=== PATIENT | male | born 1955 | race Caucasian/White ===

== ENCOUNTER 2021-07-27 12:12 | Inpatient (IN) | payer MEDICARE, OTHER ==
[2021-07-27] MEDS ORDERED: Ondansetron 4 MG/2 ML SDV IVPUSH ONE (12:20)
[2021-07-27] MEDS ORDERED: Sodium Chloride 0.9% 1,000 ML IV SCH (12:30)
--- NOTE | 2021-07-27 12:38 | EDM.PDOC ---
ED HPI GENERAL MEDICAL PROBLEM - General Stated Complaint: sob, covid positive Time Seen by Provider: 07/27/21 12:25 Source of Information: Reports: Patient, Family History Limitations: Reports: No Limitations - History of Present Illness INITIAL COMMENTS - FREE TEXT/NARRATIVE: Patient presents to the ER from the clinic for hypoxia from COVId 19. He is vaccinated, he started feeling unwell with body aches, chills, fever, cough a week ago. He tested positive for covid 19 and did receive the monoclonal antibodies yesterday. Today he was feeling worse, went to the clinic and was told he was hypoxic so was sent to the ED. Sats are 88% on room air. Not on breathing treatments or oxygen. Has had fevers, taking over the counter medications. Has diarrhea for the last several days, on iron so stools are already black, no change. Is drinking fluids, good urine output. 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 Denies: Rhinitis, Sinus Problem, Throat Pain, Throat Swelling Respiratory: Reports: Shortness of Breath, Cough Cardiovascular: Reports: Dyspnea on Exertion. Denies: Chest Pain Endocrine: Reports: No Symptoms GI/Abdominal: Reports: Black Stool (on iron, unchanged), Diarrhea, Decreased Appetite, Nausea. Denies: Vomiting Musculoskeletal: Reports: No Symptoms Skin: Reports: No Symptoms Neurological: Reports: No Symptoms Psychiatric: Reports: No Symptoms ED EXAM, GENERAL - Physical Exam Exam: See Below Exam Limited By: No Limitations General Appearance: Alert, WD/WN, No Apparent Distress Eye Exam: Bilateral Eye: EOMI, Normal Inspection, PERRL Ears: Normal External Exam, Normal Canal Nose: Normal Inspection Throat/Mouth: Normal Inspection, Normal Lips, Normal Teeth, Normal Voice Head: Atraumatic Neck: Normal Inspection Respiratory/Chest: Decreased Breath Sounds (bases). No: Respiratory Distress, Crackles Cardiovascular: Normal Peripheral Pulses, Regular Rate, Rhythm GI/Abdominal: Normal Bowel Sounds, Soft, Non-Tender, No Organomegaly Back Exam: Normal Inspection Extremities: Normal Inspection, Normal Range of Motion, No Pedal Edema Neurological: Alert, Oriented, CN II-XII Intact Psychiatric: Normal Affect #1 Interpretation EKG Date: 07/27/21 Time: 12:21 Rhythm: NSR Rate (Beats/Min): 58 P-Wave: Present QRS: Normal CA/PQ Interval: prolonged at 210 Course - Vital Signs Last Recorded V/S: Last Vital Signs Temp 36.6 C 07/27/21 15:24 Pulse 58 L 07/27/21 15:24 Resp 19 07/27/21 15:24 BP 97/49 L 07/27/21 15:24 Pulse Ox 93 L 07/27/21 15:24 - Orders/Labs/Meds Orders: Active Orders 24 hr Category Date Time Status Cardiac Monitoring [RC] 06,10,14,18,22,02 Care 07/27/21 12:16 Active EKG Documentation Completion [RC] STAT Care 07/27/21 12:16 Active Oxygen Therapy Adult [Oxygen Therapy, ED] [RC] Care 07/27/21 12:17 Active ASDIRECTED CULTURE BLOOD [BC] Stat Lab 07/27/21 12:25 Received CULTURE BLOOD [BC] Stat Lab 07/27/21 12:34 Results Sodium Chloride 0.9% [Normal Saline] 1,000 ml Med 07/27/21 12:30 Active IV ASDIRECTED Blood Culture x2 Reflex Set [OM.PC] Stat Oth 07/27/21 12:16 Ordered Medication Orders Sodium Chloride (Normal Saline) 1,000 mls @ 999 mls/hr IV ASDIRECTED OMID Last Admin: 07/27/21 12:42 Dose: 999 mls/hr Documented by: HAI Labs: Laboratory Tests 07/27/21 07/27/21 07/27/21 Range/Units 12:25 12:25 12:25 WBC 4.0 (4.0-10.0) x10^3/uL RBC 4.26 L (4.5-6.0) x10^6/uL Hgb 11.9 L (14.0-18.0) g/dL Hct 37.0 L (40.0-52.0) % MCV 86.9 (78.0-93.0) fL MCH 27.9 (26.0-32.0) pg MCHC 32.2 (32.0-36.0) g/dL RDW Coeff of Jarrod 15.5 H (10.0-15.0) % Plt Count 155 (130-400) x10^3/uL Immature Gran % (Auto) 0.50 H (0.00-0.43) % Neut % (Auto) 71.0 (50.0-80.0) % Lymph % (Auto) 17.1 L (25.0-50.0) % Pinal % (Auto) 10.8 (2.0-11.0) % Eos % (Auto) 0.3 (0.0-4.0) % Baso % (Auto) 0.3 (0.2-1.2) % Neut # (Auto) 2.8 (1.8-7.7) x10^3/uL Lymph # (Auto) 0.7 L (1.0-4.8) x10^3/uL Pinal # (Auto) 0.4 (0.0-0.8) x10^3/uL Eos # (Auto) 0.0 (0.0-0.5) x10^3/uL Baso # (Auto) 0.0 (0.0-0.2) x10^3/uL Immature Gran # (Auto) 0.02 (0.00-0.07) x10^3/uL D-Dimer, Quantitative 1.32 H (<=0.58) mg/LFEU POC ABG pH (7.35-7.45) pH POC ABG pCO2 (35-48) mmHg POC ABG pO2 (83-108) mmHg POC ABG HCO3 (21-28) mmol/L POC ABG Total CO2 (22-29) mmol/L POC ABG O2 Sat (94-98) % POC ABG Base Excess ((-2)-3) mmol/L POC FiO2 Sodium 135 L (136-145) mmol/L Potassium 4.1 (3.5-5.1) mmol/L Chloride 101 (98-107) mmol/L Carbon Dioxide 25 (21-32) mmol/L Anion Gap 13.1 (5-15) mmol/L BUN 11 (7-18) mg/dL Creatinine 0.9 (0.70-1.30) mg/dL Est Cr Clr Drug Dosing TNP Estimated GFR (MDRD) > 60 Glucose 111 H (70-99) mg/dL Lactic Acid (0.4-2.0) mmol/L Calcium 7.7 L (8.5-10.1) mg/dL Corrected Calcium 8.8 (8.5-10.1) mg/dL Total Bilirubin 0.4 (0.2-1.0) mg/dL AST 83 H (15-37) U/L ALT 53 (16-63) U/L Alkaline Phosphatase 88 (46-116) U/L Troponin I High Sens 10 (<=76) ng/L C-Reactive Protein 14.3 H (<=0.9) mg/dL NT-Pro-B Natriuret Pep 104 (<=125) pg/mL Total Protein 6.3 L (6.4-8.2) g/dL Albumin 2.6 L (3.4-5.0) g/dL Globulin 3.7 Albumin/Globulin Ratio 0.70 07/27/21 07/27/21 Range/Units 12:25 12:56 WBC (4.0-10.0) x10^3/uL RBC (4.5-6.0) x10^6/uL Hgb (14.0-18.0) g/dL Hct (40.0-52.0) % MCV (78.0-93.0) fL MCH (26.0-32.0) pg MCHC (32.0-36.0) g/dL RDW Coeff of Jarrod (10.0-15.0) % Plt Count (130-400) x10^3/uL Immature Gran % (Auto) (0.00-0.43) % Neut % (Auto) (50.0-80.0) % Lymph % (Auto) (25.0-50.0) % Pinal % (Auto) (2.0-11.0) % Eos % (Auto) (0.0-4.0) % Baso % (Auto) (0.2-1.2) % Neut # (Auto) (1.8-7.7) x10^3/uL Lymph # (Auto) (1.0-4.8) x10^3/uL Pinal # (Auto) (0.0-0.8) x10^3/uL Eos # (Auto) (0.0-0.5) x10^3/uL Baso # (Auto) (0.0-0.2) x10^3/uL Immature Gran # (Auto) (0.00-0.07) x10^3/uL D-Dimer, Quantitative (<=0.58) mg/LFEU POC ABG pH 7.43 (7.35-7.45) pH POC ABG pCO2 37 (35-48) mmHg POC ABG pO2 87 (83-108) mmHg POC ABG HCO3 24.5 (21-28) mmol/L POC ABG Total CO2 24.9 (22-29) mmol/L POC ABG O2 Sat 96.9 (94-98) % POC ABG Base Excess 0 ((-2)-3) mmol/L POC FiO2 28 Sodium (136-145) mmol/L Potassium (3.5-5.1) mmol/L Chloride (98-107) mmol/L Carbon Dioxide (21-32) mmol/L Anion Gap (5-15) mmol/L BUN (7-18) mg/dL Creatinine (0.70-1.30) mg/dL Est Cr Clr Drug Dosing Estimated GFR (MDRD) Glucose (70-99) mg/dL Lactic Acid 1.6 (0.4-2.0) mmol/L Calcium (8.5-10.1) mg/dL Corrected Calcium (8.5-10.1) mg/dL Total Bilirubin (0.2-1.0) mg/dL AST (15-37) U/L ALT (16-63) U/L Alkaline Phosphatase (46-116) U/L Troponin I High Sens (<=76) ng/L C-Reactive Protein (<=0.9) mg/dL NT-Pro-B Natriuret Pep (<=125) pg/mL Total Protein (6.4-8.2) g/dL Albumin (3.4-5.0) g/dL Globulin Albumin/Globulin Ratio Meds: Medications Generic Name Dose Route Start Last Admin Trade Name Dilma PRN Reason Stop Dose Admin Sodium Chloride 1,000 mls @ 999 mls/hr 07/27/21 12:30 07/27/21 12:42 Normal Saline IV 999 mls/hr ASDIRECTED OMID Administration Discontinued Medications Generic Name Dose Route Start Last Admin Trade Name Denilsonq PRN Reason Stop Dose Admin Dexamethasone 2 mg/ 6 mg 07/27/21 13:16 07/27/21 13:28 Dexamethasone 4 mg PO 07/27/21 13:17 6 mg ONETIME ONE Administration Remdesivir 200 mg/ Sodium 250 mls @ 250 mls/hr 07/27/21 12:56 07/27/21 13:29 Chloride IV 07/27/21 13:55 250 mls/hr ONETIME ONE Administration Iopamidol 100 ml 07/27/21 14:36 07/27/21 14:05 Iopamidol 755 Mg/Ml 100 Ml Bottle IVPUSH 07/27/21 14:37 100 ml ONETIME ONE Administration Ondansetron HCl 4 mg 07/27/21 12:20 07/27/21 12:42 Ondansetron 4 Mg/2 Ml Sdv IVPUSH 07/27/21 12:21 4 mg ONETIME ONE Administration - Radiology Interpretation Free Text/Narrative:: CT chest pe protocol negative for pulmonary embolus sequalae of covid 19 enhancing mass from the right kidney extending beyond the field of view could represent neoplastm. CT with IV contrast in at least 24 hours. report by radiology - Re-Assessments/Exams Free Text/Narrative Re-Assessment/Exam: 07/27/21 12:55 sats are 88% on room air, not in distress. Needs oxygen and admission. will look for other causes or problems , EKG, Iv fluids, zofran due to diarrhea. Departure - Departure Time of Disposition: 13:31 (use ER note as admission H & P) Disposition: Admitted As Inpatient 66 Condition: Good Clinical Impression: Respiratory failure, COVID-19, Renal mass, right - Discharge Information - My Orders Last 24 Hours: My Active Orders 07/27/21 12:16 Cardiac Monitoring [RC] 06,10,14,18,22,02 EKG Documentation Completion [RC] STAT Blood Culture x2 Reflex Set [OM.PC] Stat 07/27/21 12:17 Oxygen Therapy Adult [Oxygen Therapy, ED] [RC] ASDIRECTED 07/27/21 12:25 CULTURE BLOOD [BC] Stat 07/27/21 12:30 Sodium Chloride 0.9% [Normal Saline] 1,000 ml IV ASDIRECTED 07/27/21 12:34 CULTURE BLOOD [BC] Stat - Assessment/Plan Last 24 Hours: My Active Orders 07/27/21 12:16 Cardiac Monitoring [RC] 06,10,14,18,22,02 EKG Documentation Completion [RC] STAT Blood Culture x2 Reflex Set [OM.PC] Stat 07/27/21 12:17 Oxygen Therapy Adult [Oxygen Therapy, ED] [RC] ASDIRECTED 07/27/21 12:25 CULTURE BLOOD [BC] Stat 07/27/21 12:30 Sodium Chloride 0.9% [Normal Saline] 1,000 ml IV ASDIRECTED 07/27/21 12:34 CULTURE BLOOD [BC] Stat
[2021-07-27] MEDS ORDERED: REMDESIVIR 200 MG in Sodium Chloride 0.9% 250 ML IV ONE (12:56)
[2021-07-27] MEDS ORDERED: Dexamethasone 1 MG/ML Oral Drops 4 ML UD Cup PO ONE (12:56)
[2021-07-27 13:03] LABS: PCO2 ARTERIAL,POC 37 mmHg (35-48)
[2021-07-27] MEDS ORDERED: dexAMETHasone 2 MG, dexAMETHasone 4 MG PO ONE ×2 (13:16)
[2021-07-27 13:26] LABS: CHLORIDE,CL 101 mmol/L (98-107); SODIUM,NA 135 mmol/L (136-145)
[2021-07-27 13:27] LABS: ANION GAP 13.1 mmol/L (5-15)
[2021-07-27] MEDS ORDERED: Iopamidol 755 Mg/ML 100 ML Bottle IVPUSH ONE (14:36)
--- NOTE | 2021-07-27 15:25 | CT ---
[id number] CT/CTA Chest EXAM: CTA Chest CLINICAL DATA: HYPOXIA, COVID +, ELEVATED D-DIMER COMPARISON STUDY: None. FINDINGS: Lungs: Patchy areas of geographic appearing and not masslike parenchymal opacification in both lungs. Some of these areas demonstrate associated interlobular septal thickening. Appearance is consistent with sequela of COVID 19. 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 Mediastinum: Reactive appearing subcentimeter mediastinal and hilar lymphadenopathy. Heart and great vessels: Heart is normal in size. No pericardial effusion. Thoracic aorta is normal in caliber. Pulmonary arteries are normal in caliber. Negative for pulmonary most. Bones: No acute fracture or compression deformity. Spondylosis. Upper abdomen: Partially visualized enhancing mass arising from the right kidney. This extends beyond the field of view of this examination. Hepatomegaly and diffuse steatosis. Linear hyperdensity in the region of the gastric body. Finding is nonspecific. Correlate with surgical history. There appears to be vascular coils in the right hepatic lobe. IMPRESSION: Negative for pulmonary embolus. Sequela of COVID 19. Enhancing mass arising from the right kidney extending beyond the field of view of this examination. Finding could represent neoplasm. CT examination of the abdomen/pelvis with intravenous contrast is recommended. Repeat examination should be performed after at least 24 hours to allow for excretion of contrast from today's examination. Other findings are described above. Eloy Sandoval MD 07/27/21 [id number] Thank you for allowing us to participate in the care of your patient.
[2021-07-27] MEDS ORDERED: traMADol 50 MG Tab PO PRN (17:07)
--- NOTE | 2021-07-27 17:14 | PCM.HP.2 ---
H&P History of Present Illness - General Date of Service: 07/27/21 Admit Problem/Dx: Admission Diagnosis/Problem Admission Diagnosis/Problem Respiratory failure - History of Present Illness Initial Comments - Free Text/Narative: Francisco J is a 65-year-old male with a past medical history of angiodysplasia with gastrointestinal hemorrhage, morbid obesity, secondary hypothyroidism, chronic gout, hypokalemia, sleep apnea on CPAP therapy, chronic iron deficiency anemia who is being admitted today for acute hypoxic respiratory failure secondary to Covid pneumonia. Patient states that symptoms started about 5 days ago with some fatigue and body aches. On 07/25/2021 he did start to feel a bit worse and got some chills and actually went to [facility] to get tested for Covid. His Covid test came back positive. Due to his high risk status it was recommended for him to receive band therapy. He actually did receive this on 07/26/2021 and felt pretty good after returning home. Today while doing home oxygen monitoring he did note that his oxygen saturations dipped to 85%. He was advised to go to the ER. Upon arrival to the ER his oxygen was noted to be about 88%. This did improve to the low to mid 90s on 2 L. Labs with a normal white cell count, mildly depressed hemoglobin at 11.9, positive D-dimer at 1.32. ABGs were normal. AST with mild elevation at 83, normal ALT, normal bilirubin, normal alk phos. Troponin was normal. CRP 14.3. Calcium slightly low at 7.7. He was given a dose of remdesivir as well as steroids in the ER. CT scan of the chest did show typical Covid pneumonia findings. No pulmonary embolism was noted. Incidentally, a renal mass was noted on the right kidney. Radiologist did note that this to be followed up in about 24 hours time with IV contrast exam of the abdomen and pelvis. Aside from being in the hospital treat his Covid pneumonia the patient is interested in getting more work-up done in regards to his chronic fatigue. States that this is a problem that he has had for years. Discussed with him that the work-up for this may be difficult in the hospital but we will see what can be done. - Related Data Allergies/Adverse Reactions: Allergies Allergy/AdvReac Type Severity Reaction Status Date / Time No Known Allergies Allergy Verified 07/26/21 11:22 Home Medications: Home Meds Acetaminophen [Tylenol Extra Strength] 1,000 mg PO Q4H PRN 07/27/21 [History] Allopurinol [Zyloprim] 300 mg PO DAILY 07/27/21 [History] Levothyroxine Sodium [Levothyroxine] 100 mcg PO DAILY 07/27/21 [History] Multivitamin with Minerals [Multiple Vitamin] 1 tab PO DAILY 07/27/21 [History] Potassium Chloride [Klor-Con M20] 20 meq PO BIDMEALS 07/27/21 [History] Sildenafil Citrate [Viagra] 100 mg PO DAILY PRN 07/27/21 [History] traMADol [Ultram] 50 mg PO BID PRN 07/27/21 [History] Past Medical History Cardiovascular History: Reports: Hypertension Gastrointestinal History: Reports: Other (See Below) (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) Endocrine/Metabolic History: Reports: Hypothyroidism - Infectious Disease History Infectious Disease History: Reports: Novel Coronavirus Social & Family History - Recreational Drug Use Recreational Drug Use: No Drug Use in Last 12 Months: No H&P Review of Systems - Review of Systems: Review Of Systems: See Below General: Reports: Weakness, Fatigue HEENT: Reports: No Symptoms Pulmonary: Reports: Shortness of Breath Cardiovascular: Reports: No Symptoms Gastrointestinal: Reports: No Symptoms Genitourinary: Reports: No Symptoms Musculoskeletal: Reports: No Symptoms Skin: Reports: No Symptoms Psychiatric: Reports: No Symptoms Neurological: Reports: No Symptoms Hematologic/Lymphatic: Reports: No Symptoms Exam - Exam Exam: See Below - Vital Signs Vital Signs: Last Vital Signs Temp 97.9 F 07/27/21 15:24 Pulse 58 L 07/27/21 15:24 Resp 19 07/27/21 15:24 BP 97/49 L 07/27/21 15:24 Pulse Ox 93 L 07/27/21 15:24 Weight: 300 lb - Exam Quality Assessment: Supplemental Oxygen (3L with sats in the mid-90s) General: Alert, Oriented HEENT: Mucosa Moist & [place] Neck: Supple Lungs: Normal Respiratory Effort, Crackles (throughout the bilateral middle/lower lobes) Cardiovascular: Regular Rate, Regular Rhythm GI/Abdominal Exam: Normal Bowel Sounds, Soft, Non-Tender Back Exam: Normal Inspection Extremities: Normal Inspection, Non-Tender, No Pedal Edema Skin: Warm, Dry, Intact Neuro Extensive - Mental Status: Alert, Oriented x3, Normal Mood/Affect Psychiatric: Alert, Normal Affect, Normal Mood - Patient Data Lab Results Last 24 hrs: Laboratory Results - last 24 hr 07/27/21 07/27/21 07/27/21 Range/Units 12:25 12:25 12:25 WBC 4.0 (4.0-10.0) x10^3/uL RBC 4.26 L (4.5-6.0) x10^6/uL Hgb 11.9 L (14.0-18.0) g/dL Hct 37.0 L (40.0-52.0) % MCV 86.9 (78.0-93.0) fL MCH 27.9 (26.0-32.0) pg MCHC 32.2 (32.0-36.0) g/dL RDW Coeff of Jarrod 15.5 H (10.0-15.0) % Plt Count 155 (130-400) x10^3/uL Immature Gran % (Auto) 0.50 H (0.00-0.43) % Neut % (Auto) 71.0 (50.0-80.0) % Lymph % (Auto) 17.1 L (25.0-50.0) % [place] % (Auto) 10.8 (2.0-11.0) % Eos % (Auto) 0.3 (0.0-4.0) % Baso % (Auto) 0.3 (0.2-1.2) % Neut # (Auto) 2.8 (1.8-7.7) x10^3/uL Lymph # (Auto) 0.7 L (1.0-4.8) x10^3/uL [place] # (Auto) 0.4 (0.0-0.8) x10^3/uL Eos # (Auto) 0.0 (0.0-0.5) x10^3/uL Baso # (Auto) 0.0 (0.0-0.2) x10^3/uL Immature Gran # (Auto) 0.02 (0.00-0.07) x10^3/uL D-Dimer, Quantitative 1.32 H (<=0.58) mg/LFEU POC ABG pH (7.35-7.45) pH POC ABG pCO2 (35-48) mmHg POC ABG pO2 (83-108) mmHg POC ABG HCO3 (21-28) mmol/L POC ABG Total CO2 (22-29) mmol/L POC ABG O2 Sat (94-98) % POC ABG Base Excess ((-2)-3) mmol/L POC FiO2 Sodium 135 L (136-145) mmol/L Potassium 4.1 (3.5-5.1) mmol/L Chloride 101 (98-107) mmol/L Carbon Dioxide 25 (21-32) mmol/L Anion Gap 13.1 (5-15) mmol/L BUN 11 (7-18) mg/dL Creatinine 0.9 (0.70-1.30) mg/dL Est Cr Clr Drug Dosing TNP Estimated GFR (MDRD) > 60 Glucose 111 H (70-99) mg/dL Lactic Acid (0.4-2.0) mmol/L Calcium 7.7 L (8.5-10.1) mg/dL Corrected Calcium 8.8 (8.5-10.1) mg/dL Total Bilirubin 0.4 (0.2-1.0) mg/dL AST 83 H (15-37) U/L ALT 53 (16-63) U/L Alkaline Phosphatase 88 (46-116) U/L Troponin I High Sens 10 (<=76) ng/L C-Reactive Protein 14.3 H (<=0.9) mg/dL NT-Pro-B Natriuret Pep 104 (<=125) pg/mL Total Protein 6.3 L (6.4-8.2) g/dL Albumin 2.6 L (3.4-5.0) g/dL Globulin 3.7 Albumin/Globulin Ratio 0.70 Urine Color (YELLOW) Urine Appearance (CLEAR) Urine pH (5.0-8.0) Ur Specific [place] Urine Protein (NEGATIVE) mg/dL Urine Glucose (UA) (NEGATIVE) mg/dL Urine Ketones (NEGATIVE) mg/dL Urine Occult Blood (NEGATIVE) Urine Nitrite (NEGATIVE) Urine Bilirubin (NEGATIVE) Urine Urobilinogen (0.2) EU/dL Ur Leukocyte Esterase (NEGATIVE) 07/27/21 07/27/21 07/27/21 Range/Units 12:25 12:56 15:10 WBC (4.0-10.0) x10^3/uL RBC (4.5-6.0) x10^6/uL Hgb (14.0-18.0) g/dL Hct (40.0-52.0) % MCV (78.0-93.0) fL MCH (26.0-32.0) pg MCHC (32.0-36.0) g/dL RDW Coeff of Jarrod (10.0-15.0) % Plt Count (130-400) x10^3/uL Immature Gran % (Auto) (0.00-0.43) % Neut % (Auto) (50.0-80.0) % Lymph % (Auto) (25.0-50.0) % [place] % (Auto) (2.0-11.0) % Eos % (Auto) (0.0-4.0) % Baso % (Auto) (0.2-1.2) % Neut # (Auto) (1.8-7.7) x10^3/uL Lymph # (Auto) (1.0-4.8) x10^3/uL [place] # (Auto) (0.0-0.8) x10^3/uL Eos # (Auto) (0.0-0.5) x10^3/uL Baso # (Auto) (0.0-0.2) x10^3/uL Immature Gran # (Auto) (0.00-0.07) x10^3/uL D-Dimer, Quantitative (<=0.58) mg/LFEU POC ABG pH 7.43 (7.35-7.45) pH POC ABG pCO2 37 (35-48) mmHg POC ABG pO2 87 (83-108) mmHg POC ABG HCO3 24.5 (21-28) mmol/L POC ABG Total CO2 24.9 (22-29) mmol/L POC ABG O2 Sat 96.9 (94-98) % POC ABG Base Excess 0 ((-2)-3) mmol/L POC FiO2 28 Sodium (136-145) mmol/L Potassium (3.5-5.1) mmol/L Chloride (98-107) mmol/L Carbon Dioxide (21-32) mmol/L Anion Gap (5-15) mmol/L BUN (7-18) mg/dL Creatinine (0.70-1.30) mg/dL Est Cr Clr Drug Dosing Estimated GFR (MDRD) Glucose (70-99) mg/dL Lactic Acid 1.6 (0.4-2.0) mmol/L Calcium (8.5-10.1) mg/dL Corrected Calcium (8.5-10.1) mg/dL Total Bilirubin (0.2-1.0) mg/dL AST (15-37) U/L ALT (16-63) U/L Alkaline Phosphatase (46-116) U/L Troponin I High Sens (<=76) ng/L C-Reactive Protein (<=0.9) mg/dL NT-Pro-B Natriuret Pep (<=125) pg/mL Total Protein (6.4-8.2) g/dL Albumin (3.4-5.0) g/dL Globulin Albumin/Globulin Ratio Urine Color Yellow (YELLOW) Urine Appearance Clear (CLEAR) Urine pH 6.0 (5.0-8.0) Ur Specific [place] <=1.005 Urine Protein Negative (NEGATIVE) mg/dL Urine Glucose (UA) Negative (NEGATIVE) mg/dL Urine Ketones Negative (NEGATIVE) mg/dL Urine Occult Blood Negative (NEGATIVE) Urine Nitrite Negative (NEGATIVE) Urine Bilirubin Negative (NEGATIVE) Urine Urobilinogen 0.2 (0.2) EU/dL Ur Leukocyte Esterase Negative (NEGATIVE) Result Diagrams: 07/27/21 12:25 07/27/21 12:25 Matias Results Last 24 hrs: Microbiology 07/27/21 12:34 Anaerobic Blood Culture - Final Blood - Venous - Lab Draw Sepsis Event Note - Focused Exam Vital Signs: Vital Signs Temp Pulse Resp BP Pulse Ox 07/27/21 15:24 97.9 F 58 L 19 97/49 L 93 L - Problem List (1) COVID-19 SNOMED Code(s): 014043259 ICD Code: U07.1 - COVID-19 Status: Acute Current Visit: Yes (2) Respiratory failure SNOMED Code(s): 603300061 ICD Code: J96.90 - RESPIRATORY FAILURE, UNSP, UNSP W HYPOXIA OR HYPERCAPNIA Status: Acute Current Visit: Yes (3) Renal mass, right SNOMED Code(s): 997699977 ICD Code: N28.89 - OTHER SPECIFIED DISORDERS OF KIDNEY AND URETER Status: Acute Current Visit: Yes Problem List Initiated/Reviewed/Updated: Yes Orders Last 24hrs: Active Orders 24 hr Category Date Time Status Admission Status [Patient Status] [ADT] Routine ADT 07/27/21 13:06 Active Cardiac Monitoring [RC] . DIRECTED Care 07/27/21 13:06 Active Cardiac Monitoring [RC] 06,10,14,18,22,02 Care 07/27/21 12:16 Active Communication Order [RC] ROUTINE Care 07/27/21 17:05 Ordered EKG Documentation Completion [RC] STAT Care 07/27/21 12:16 Active Oxygen Therapy Adult [Oxygen Therapy, ED] [RC] Care 07/27/21 12:17 Active ASDIRECTED Oxygen Therapy [RC] PRN Care 07/27/21 17:04 Ordered Up ad Nhi [RC] ASDIRECTED Care 07/27/21 17:01 Ordered VTE/DVT Education [RC] PER UNIT ROUTINE Care 07/27/21 17:04 Ordered Vital Signs [RC] Q4H Care 07/27/21 17:04 Ordered Respiratory Care Assess and Treatment [CONS] Routine Cons 07/27/21 17:01 Ordered Regular Diet [DIET] Diet 07/27/21 Dinner Ordered Chest 1V Frontal [CR] AM Exams 07/28/21 05:11 Ordered CBC W/O DIFF,HEMOGRAM [HEME] DAILY Lab 07/27/21 17:15 Ordered COMPREHENSIVE METABOLIC PN,CMP [CHEM] DAILY Lab 07/27/21 17:15 Ordered CULTURE BLOOD [BC] Stat Lab 07/27/21 12:25 Received CULTURE BLOOD [BC] Stat Lab 07/27/21 12:34 Results Acetaminophen [TylenoL] Med 07/27/21 17:01 Ordered 650 mg PO Q4H PRN Ascorbic Acid [Vitamin C] Med 07/28/21 08:00 Ordered 500 mg PO DAILY Cholecalciferol (Vitamin D3) [Vitamin D3] Med 07/28/21 08:00 Ordered 25 mcg PO DAILY Enoxaparin [Lovenox] Med 07/28/21 08:00 Ordered 40 mg SUBCUT DAILY Levothyroxine Sodium [Levothyroxine] Med 07/28/21 08:00 Ordered 100 mcg PO DAILY Multivitamin with Minerals [Multiple Vitamin] Med 07/28/21 08:00 Ordered 1 tab PO DAILY Ondansetron [Zofran ODT] Med 07/27/21 17:01 Ordered 4 mg PO Q4H PRN Potassium Chloride [Klor-Con M20] Med 07/27/21 18:00 Ordered 20 meq PO BIDMEALS Remdesivir 100 mg Med 07/28/21 17:15 Ordered Sodium Chloride 0.9% [Normal Saline AdvBag] 100 ml IV Q24H Sodium Chloride 0.9% [Normal Saline] 1,000 ml Med 07/27/21 12:30 Active IV ASDIRECTED Zinc Sulfate [Zincate] Med 07/28/21 08:00 Ordered 220 mg PO DAILY allopurinoL [Zyloprim] Med 07/28/21 08:00 Ordered 300 mg PO DAILY dexAMETHasone 6 MG Med 07/28/21 08:00 Ordered 6 mg PO DAILY traMADol [Ultram] Med 07/27/21 17:07 Ordered 50 mg PO BID PRN Blood Culture x2 Reflex Set [OM.PC] Stat Oth 07/27/21 12:16 Ordered Resuscitation Status Routine Resus Stat 07/27/21 17:01 Ordered Medication Orders Acetaminophen (Acetaminophen 325 Mg Tab) 650 mg PO Q4H PRN PRN Reason: Pain (Mild 1-3)/fever Allopurinol (Allopurinol 300 Mg Tab) 300 mg PO DAILY [facility] Dexamethasone 2 mg/ (Dexamethasone 4 mg) 6 mg PO DAILY [facility] Enoxaparin Sodium (Enoxaparin 40 Mg/0.4 Ml Syringe) 40 mg SUBCUT DAILY [facility] Sodium Chloride (Normal Saline) 1,000 mls @ 999 mls/hr IV ASDIRECTED [facility] Last Admin: 07/27/21 12:42 Dose: 999 mls/hr Documented by: WENDALA Remdesivir 100 mg/ Sodium (Chloride) 100 mls @ 100 mls/hr IV Q24H [facility] Stop: 07/31/21 18:14 Non-Formulary Medication (Levothyroxine Sodium [Levothyroxine]) 100 mcg PO D AILY [facility] Non-Formulary Medication (Multivitamin With Minerals [Multiple Vitamin]) 1 tab PO DAILY [facility] Ondansetron HCl (Ondansetron 4 Mg Tab.Dis) 4 mg PO Q4H PRN PRN Reason: nausea, able to take PO Potassium Chloride (Potassium Chloride 20 Meq Tab.Er) 20 meq PO BIDMEALS [facility] Tramadol HCl (Tramadol 50 Mg Tab) 50 mg PO BID PRN PRN Reason: severe pain Assessment/Plan Comment:: Francisco J is a 65-year-old male who was admitted on 07/27/2021 for Covid pneumonia. Symptoms started on 07/22/2021. Acute hypoxic respiratory failure Covid pneumonia -Patient is status post monoclonal antibody therapy on 07/26/2021 -Received first dose of steroids in remdesivir in the ER on 07/27/2021 Plan: -Continue steroids and remdesivir -Continue to monitor oxygen and supplement as necessary -Zinc, vitamin D, vitamin C -Nursing communication for proning placed -Respiratory therapy consultation placed -Repeat CMP, CBC daily. Repeat x-ray tomorrow morning. Incidental right renal mass -Seen on CTA of the chest, not fully evaluated -Radiologist did note concerns for possible neoplasm. -Unfortunately, this report was not seen until this provider had already rounded on/admitted the patient. We will have the weekend provider discussed this with him and place the order for CTA after they have had the discussion (pending good renal panel tomorrow). Plan: -Would recommend follow-up with CTA abdomen/pelvis to evaluate in more detail. Chronic: -Angiodysplasia/history of GI hemorrhage: Patient is now due for his next dose of lanreotide until 08/03/2021 -Obstructive sleep apnea: CPAP use at night -Hypokalemia: Continue home medication -Secondary hypothyroidism: Continue home medication -Chronic gout: Continue home medication -Morbid obesity Diet: Regular DVT: Lovenox subcu Code: Full Disposition: Anticipate patient to remain inpatient for 5 days for continued monitoring and treatment of the acute hypoxic respiratory failure and Covid pneumonia. Did recommend for him to stay inpatient for the period of time for the treatment with remdesivir for prevention of him having worsening of his symptoms. - Mortality Measure Prognosis:: Good
[2021-07-27] MEDS: Potassium Chloride 20 MEQ Tab.ER PO SCH (18:10)
[2021-07-28] MEDS: Levothyroxine 100 MCG Tab PO SCH (06:06)
[2021-07-28] MEDS: Enoxaparin 40 MG/0.4 ML Syringe SUBCUT SCH (07:47)
[2021-07-28] MEDS: Cholecalciferol (Vitamin D3) 25 MCG Tab PO SCH (07:48)
[2021-07-28] MEDS: Ondansetron 4 MG Tab.DIS PO PRN (07:48)
[2021-07-28] MEDS: Allopurinol 300 MG Tab PO SCH (07:48)
[2021-07-28] MEDS: Zinc Sulfate 220 MG Cap PO SCH (07:48)
[2021-07-28] MEDS: Ascorbic Acid 500 MG Tab PO SCH (07:48)
[2021-07-28] MEDS: dexAMETHasone 2 MG, dexAMETHasone 4 MG PO SCH ×2 (07:48)
[2021-07-28] MEDS: Multivitamins with Iron/Calcium/Folic Acid/Minerals Tab PO SCH (07:48)
[2021-07-28] MEDS: Acetaminophen 325 MG Tab PO PRN (07:48)
[2021-07-28] MEDS: Potassium Chloride 20 MEQ Tab.ER PO SCH ×2 (07:51→18:08)
[2021-07-28] MEDS ORDERED: Levothyroxine 100 MCG Tab PO SCH (08:00)
[2021-07-28 08:06] LABS: ANION GAP 11.5 mmol/L (5-15); CHLORIDE,CL 105 mmol/L (98-107); SODIUM,NA 141 mmol/L (136-145)
--- NOTE | 2021-07-28 08:24 | PN ---
Progress Note for MARIO LORA Date: 07/28/2021 Room #: VM210 CHIEF COMPLAINT: Shortness of breath. SUBJECTIVE: Hospital day #2 on a 65-year-old male patient who was admitted to the acute care floor at [facility] yesterday for acute respiratory failure with hypoxia secondary to COVID-19. The patient states his breathing feels better today. He continues on oxygen. The patient has a dry cough. Patient denies any chest pain or palpitations. The patient has shortness of breath with activity. He does desaturate with activity. Patient has no abdominal complaints. Patient denies any pain. No skin concerns. PHYSICAL EXAMINATION: Vital Signs: Temperature 98.4, pulse 69, blood pressure 95/65, respiratory rate 18, oxygen saturation 92% on 5 L. Skin: Intact, warm and dry. Respiratory: Lungs are decreased throughout, otherwise clear. Cardiovascular: Regular rate and rhythm, no murmur. Abdomen: Obese, bowel sounds are hypoactive x4. Soft and nontender. Extremities: No edema. Neurological: Patient is alert. Patient is oriented to person, place, and time. No focal neurological deficits. LABORATORY STUDIES: Pending. ASSESSMENT: 1. Acute hypoxic respiratory failure secondary to COVID pneumonia. 2. Incidental right renal mass. 3. Obstructive sleep apnea, on CPAP. 4. Hypokalemia. 5. Secondary hypothyroidism. 6. Chronic gout. 7. Morbid obesity. PLAN: Hospital day #2 on a 65-year-old male patient who was admitted to the acute care floor at [facility] for acute hypoxic respiratory failure secondary to COVID-19. Continue on oxygen, wean for saturations greater than 90%. Patient needs to get up and move around in the room. We discussed incentive spirometry and cough and deep breathing. Continue on remdesivir and Decadron. Continue home medications the same. No IV fluids are indicated secondary to COVID. Recheck laboratory work tomorrow. Anticipate the patient to be here for at least 5 days for monitoring, hypoxia, and remdesivir infusion. TB: 07/28/2021 06:28:18 MODL: 07/28/2021 08:20:24 /[id number]
--- NOTE | 2021-07-28 10:28 | CR ---
[id number] RAD/RAD Chest PA or AP 1V EXAM: RAD Chest PA or AP 1V INDICATION: COVID, PNEUMONIA. COMPARISON: CT from yesterday. DISCUSSION/IMPRESSION: Fairly extensive patchy areas of parenchymal opacification remains throughout both lungs. Distribution and appearance is consistent with COVID pneumonia, correlating with findings on CT from yesterday. Eloy Sandoval MD 07/28/21 1027 Thank you for allowing us to participate in the care of your patient.
[2021-07-28] MEDS: REMDESIVIR 100 MG in Sodium Chloride 0.9% 100 ML IV SCH (15:59)
[2021-07-29] MEDS: Levothyroxine 100 MCG Tab PO SCH (06:41)
[2021-07-29] MEDS: Ondansetron 4 MG Tab.DIS PO PRN (07:52)
[2021-07-29] MEDS: Cholecalciferol (Vitamin D3) 25 MCG Tab PO SCH (07:52)
[2021-07-29] MEDS: Acetaminophen 325 MG Tab PO PRN (07:52)
[2021-07-29] MEDS: Potassium Chloride 20 MEQ Tab.ER PO SCH ×2 (07:52→18:16)
[2021-07-29] MEDS: Allopurinol 300 MG Tab PO SCH (07:52)
[2021-07-29] MEDS: Zinc Sulfate 220 MG Cap PO SCH (07:52)
[2021-07-29] MEDS: Ascorbic Acid 500 MG Tab PO SCH (07:52)
[2021-07-29] MEDS: dexAMETHasone 2 MG, dexAMETHasone 4 MG PO SCH ×2 (07:52)
[2021-07-29] MEDS: Multivitamins with Iron/Calcium/Folic Acid/Minerals Tab PO SCH (07:53)
[2021-07-29] MEDS: Enoxaparin 40 MG/0.4 ML Syringe SUBCUT SCH (07:53)
[2021-07-29 10:59] LABS: CHLORIDE,CL 105 mmol/L (98-107); SODIUM,NA 140 mmol/L (136-145)
[2021-07-29 11:01] LABS: ANION GAP 9.5 mmol/L (5-15)
--- NOTE | 2021-07-29 13:52 | CT ---
[id number] CT/CT Abdomen Pelvis WWO IV EXAM: CT Abdomen Pelvis WWO IV CLINICAL DATA: RENAL MASS. COMPARISON STUDY: Chest CT from July 27, 2021. FINDINGS: Previously seen partially visualized right kidney demonstrate possible mass on chest CT from July 27. Evaluation on today's examination demonstrates normal kidneys. No evidence of a mass in either kidney. No hydronephrosis. Findings on the prior CT are consistent with artifact from the kidney being partially visualized. Liver demonstrates changes of steatosis. Vascular coils in the right hepatic lobe. Cholecystectomy. Surgical changes adjacent to the ventral aspect of the gastric body. Pancreas, spleen, adrenal glands are normal. Small ventral fat-containing herniations just superior to the umbilicus. Colonic diverticulosis. No diverticulitis. No colitis. No small bowel obstruction or inflammation. Spondylosis. No acute fracture or compression deformity. IMPRESSION: No renal mass. Findings on prior chest CT are consistent with artifact from a partially visualized right kidney. Other findings are described above. Eloy Sandoval MD 07/29/21 1575 Thank you for allowing us to participate in the care of your patient.
--- NOTE | 2021-07-29 14:06 | PN ---
Progress Note for SEAN LORA Date: 07/29/2021 Room #: VM.210 CHIEF COMPLAINT: Shortness of breath. SUBJECTIVE: Hospital day #3 on a 65-year-old male patient who was admitted to acute care floor at [facility] on Friday for acute respiratory failure with hypoxia secondary to COVID-19. The patient states that he still feels short of breath. It hurts to take in a deep breath. He has had a dry nonproductive cough. No headaches, dizziness, or lightheadedness. Patient denies any chest pain or palpitations. No leg swelling. The patient does not think that he has had any fevers or chills. No skin concerns. No abdominal complaints. Patient is eating and drinking well. He is ambulatory in the room. PHYSICAL EXAMINATION: Vital Signs: Pulse 51, blood pressure 96/61, respiratory rate 18, and oxygen saturation 92% on 3 L. Skin: Intact, warm and dry. Respiratory: Lungs are decreased throughout, otherwise clear. Cardiovascular: Regular rate and rhythm, no murmur. Abdomen: Obese. Bowel sounds are hypoactive x4. Soft and nontender. Extremities: No edema. Neurological: The patient is alert. No focal neurological deficits. Patient is alert and oriented x3. LABORATORY STUDIES: 1. CBC: White blood cell count 10.6, hemoglobin 11.0, hematocrit 35.3, and platelets are 212,000. 2. CMP: Sodium 140, potassium 4.5, chloride 105, CO2 of 30, anion gap 9.5, BUN 17, creatinine 0.1, GFR greater than 60, glucose 193, calcium 8.4, AST 45, ALT 36, alkaline phosphatase 82, and total protein 5.9. ASSESSMENT: 1. Acute hypoxic respiratory failure secondary to COVID-19 pneumonia. 2. Incidental right renal mass. 3. Obstructive sleep apnea, on CPAP. 4. Hypokalemia. 5. Secondary hypothyroidism. 6. Chronic gout. 7. Morbid obesity. PLAN: Hospital day #3 on a 65-year-old male patient who was admitted to the acute care floor at [facility] for the above diagnoses. We will recheck CT scan of the abdomen and pelvis with contrast to evaluate the incidental finding of a renal mass. Continue on oxygen. Patient will continue on remdesivir and Decadron. Continue isolation. No IV fluids are indicated secondary to COVID. Recheck laboratory work tomorrow. Patient will be admitted for at least 5 days through the full course of remdesivir. TB: 07/29/2021 11:09:37 MODL: 07/29/2021 13:58:30 /[id number]
[2021-07-29] MEDS: REMDESIVIR 100 MG in Sodium Chloride 0.9% 100 ML IV SCH (16:01)
[2021-07-30] MEDS: Levothyroxine 100 MCG Tab PO SCH (06:01)
[2021-07-30 07:52] LABS: CHLORIDE,CL 106 mmol/L (98-107); SODIUM,NA 142 mmol/L (136-145)
[2021-07-30 07:53] LABS: ANION GAP 8.4 mmol/L (5-15)
[2021-07-30] MEDS: Ascorbic Acid 500 MG Tab PO SCH (08:41)
[2021-07-30] MEDS: Potassium Chloride 20 MEQ Tab.ER PO SCH ×2 (08:41→17:59)
[2021-07-30] MEDS: dexAMETHasone 2 MG, dexAMETHasone 4 MG PO SCH ×2 (08:41)
[2021-07-30] MEDS: Acetaminophen 325 MG Tab PO PRN (08:41)
[2021-07-30] MEDS: Cholecalciferol (Vitamin D3) 25 MCG Tab PO SCH (08:41)
[2021-07-30] MEDS: Multivitamins with Iron/Calcium/Folic Acid/Minerals Tab PO SCH (08:41)
[2021-07-30] MEDS: Enoxaparin 40 MG/0.4 ML Syringe SUBCUT SCH (08:41)
[2021-07-30] MEDS: Allopurinol 300 MG Tab PO SCH (08:41)
[2021-07-30] MEDS: Zinc Sulfate 220 MG Cap PO SCH (08:42)
[2021-07-30] MEDS: Ondansetron 4 MG Tab.DIS PO PRN (08:42)
--- NOTE | 2021-07-30 12:43 | PCM.PN ---
- General Info Date of Service: 07/30/21 Admission Dx/Problem (Free Text): Admission Diagnosis/Problem Admission Diagnosis/Problem Respiratory failure Subjective Update: Francisco J is a 65-year-old male with a past medical history of angiodysplasia with gastrointestinal hemorrhage, morbid obesity, secondary hypothyroidism, chronic gout, hypokalemia, sleep apnea on CPAP therapy, chronic iron deficiency anemia who was admitted on 07/27/21 for acute hypoxic respiratory failure secondary to Covid pneumonia. Patient states that symptoms started about 5 days ago with some fatigue and body aches. On 07/25/2021 he did start to feel a bit worse and got some chills and actually went to [facility] to get tested for Covid. His Covid test came back positive. Due to his high risk status it was recommended for him to receive band therapy. He actually did receive this on 07/26/2021 and felt pretty good after returning home. Today while doing home oxygen monitoring he did note that his oxygen saturations dipped to 85%. Ultimately, admitted to the hospital for treatment for COVID. Today is HD #4. Vitals signs, symptoms, and labs remain relatively normal. Slight bump in the WBC yesterday. Liver function stable. O2 demand with slight increase over the last 24 hours. patient reports no concerns. Has not been great about practicing IS. Nursing notes his daughter (nurse in [place]) calling constantly for updates, otherwise no concerns. - Review of Systems General: Reports: No Symptoms HEENT: Reports: No Symptoms Pulmonary: Reports: No Symptoms Cardiovascular: Reports: No Symptoms Gastrointestinal: Reports: No Symptoms Genitourinary: Reports: No Symptoms Musculoskeletal: Reports: No Symptoms Skin: Reports: No Symptoms Neurological: Reports: No Symptoms Psychiatric: Reports: No Symptoms - Patient Data Vitals - Most Recent: Last Vital Signs Temp 97.5 F 07/30/21 11:01 Pulse 47 L 07/30/21 11:01 Resp 20 07/30/21 11:01 BP 104/57 L 07/30/21 11:01 Pulse Ox 95 07/30/21 11:01 Weight - Most Recent: 300 lb I&O - Last 24 Hours: Intake & Output 07/29/21 07/30/21 07/30/21 22:59 06:59 14:59 Intake Total 1300 400 100 Output Total 1500 Balance -200 400 100 Lab Results Last 24 Hours: Laboratory Results - last 24 hr 07/30/21 07/30/21 Range/Units 07:02 07:02 WBC 9.0 (4.0-10.0) x10^3/uL RBC 3.85 L (4.5-6.0) x10^6/uL Hgb 10.7 L (14.0-18.0) g/dL Hct 33.5 L (40.0-52.0) % MCV 87.0 (78.0-93.0) fL MCH 27.8 (26.0-32.0) pg MCHC 31.9 L (32.0-36.0) g/dL RDW Coeff of Jarrod 15.1 H (10.0-15.0) % Plt Count 217 (130-400) x10^3/uL Immature Gran % (Auto) 0.80 H (0.00-0.43) % Neut % (Auto) 84.2 H (50.0-80.0) % Lymph % (Auto) 7.7 L (25.0-50.0) % [place] % (Auto) 7.2 (2.0-11.0) % Eos % (Auto) 0.0 (0.0-4.0) % Baso % (Auto) 0.1 L (0.2-1.2) % Neut # (Auto) 7.6 (1.8-7.7) x10^3/uL Lymph # (Auto) 0.7 L (1.0-4.8) x10^3/uL [place] # (Auto) 0.7 (0.0-0.8) x10^3/uL Eos # (Auto) 0.0 (0.0-0.5) x10^3/uL Baso # (Auto) 0.0 (0.0-0.2) x10^3/uL Immature Gran # (Auto) 0.07 (0.00-0.07) x10^3/uL Sodium 142 (136-145) mmol/L Potassium 4.4 (3.5-5.1) mmol/L Chloride 106 (98-107) mmol/L Carbon Dioxide 32 (21-32) mmol/L Anion Gap 8.4 (5-15) mmol/L BUN 16 (7-18) mg/dL Creatinine 0.8 (0.70-1.30) mg/dL Est Cr Clr Drug Dosing 92.06 mL/min Estimated GFR (MDRD) > 60 Glucose 137 H (70-99) mg/dL Calcium 8.4 L (8.5-10.1) mg/dL Corrected Calcium 9.7 (8.5-10.1) mg/dL Total Bilirubin 0.3 (0.2-1.0) mg/dL AST 56 H (15-37) U/L ALT 47 (16-63) U/L Alkaline Phosphatase 73 (46-116) U/L Total Protein 5.6 L (6.4-8.2) g/dL Albumin 2.4 L (3.4-5.0) g/dL Globulin 3.2 Albumin/Globulin Ratio 0.75 Matias Results Last 24 Hours: Microbiology 07/27/21 12:25 Aerobic Blood Culture - Preliminary Blood - Venous NO GROWTH AFTER 2 DAYS Anaerobic Blood Culture - Preliminary NO GROWTH AFTER 2 DAYS 07/27/21 12:34 Aerobic Blood Culture - Preliminary Blood - Venous - Lab Draw NO GROWTH AFTER 2 DAYS Anaerobic Blood Culture - Final Med Orders - Current: Current Medications Acetaminophen (Acetaminophen 325 Mg Tab) 650 mg PO Q4H PRN PRN Reason: Pain (Mild 1-3)/fever Last Admin: 07/30/21 08:41 Dose: 650 mg Documented by: Allopurinol (Allopurinol 300 Mg Tab) 300 mg PO DAILY [facility] Last Admin: 07/30/21 08:41 Dose: 300 mg Documented by: Ascorbic Acid (Ascorbic Acid 500 Mg Tab) 500 mg PO DAILY [facility] Last Admin: 07/30/21 08:41 Dose: 500 mg Documented by: Cholecalciferol (Cholecalciferol (Vitamin D3) 25 Mcg Tab) 25 mcg PO DAILY [facility] Last Admin: 07/30/21 08:41 Dose: 25 mcg Documented by: Dexamethasone 2 mg/ (Dexamethasone 4 mg) 6 mg PO DAILY [facility] Last Admin: 07/30/21 08:41 Dose: 6 mg Documented by: Enoxaparin Sodium (Enoxaparin 40 Mg/0.4 Ml Syringe) 40 mg SUBCUT DAILY [facility] Last Admin: 07/30/21 08:41 Dose: 40 mg Documented by: Remdesivir 100 mg/ Sodium (Chloride) 100 mls @ 100 mls/hr IV Q24H [facility] Stop: 07/31/21 16:59 Last Admin: 07/29/21 16:01 Dose: 100 mls/hr Documented by: Levothyroxine Sodium (Levothyroxine 100 Mcg Tab) 100 mcg PO ACBREAKFAST [facility] Last Admin: 07/30/21 06:01 Dose: 100 mcg Documented by: Multivitamins/Minerals (Multivitamins With Iron/Calcium/Folic Acid/Minerals Tab) 1 tab PO DAILY [facility] Last Admin: 07/30/21 08:41 Dose: 1 tab Documented by: Ondansetron HCl (Ondansetron 4 Mg Tab.Dis) 4 mg PO Q4H PRN PRN Reason: nausea, able to take PO Last Admin: 07/30/21 08:42 Dose: 4 mg Documented by: Potassium Chloride (Potassium Chloride 20 Meq Tab.Er) 20 meq PO BIDMEALS [facility] Last Admin: 07/30/21 08:41 Dose: 20 meq Documented by: Tramadol HCl (Tramadol 50 Mg Tab) 50 mg PO BID PRN PRN Reason: severe pain Zinc Sulfate (Zinc Sulfate 220 Mg Cap) 220 mg PO DAILY [facility] Last Admin: 07/30/21 08:42 Dose: 220 mg Documented by: Discontinued Medications Dexamethasone 2 mg/ (Dexamethasone 4 mg) 6 mg PO ONETIME ONE Stop: 07/27/21 13:17 Last Admin: 07/27/21 13:28 Dose: 6 mg Documented by: Sodium Chloride (Normal Saline) 1,000 mls @ 999 mls/hr IV ASDIRECTED [facility] Last Admin: 07/27/21 12:42 Dose: 999 mls/hr Documented by: Remdesivir 200 mg/ Sodium (Chloride) 250 mls @ 250 mls/hr IV ONETIME ONE Stop: 07/27/21 13:55 Last Admin: 07/27/21 13:29 Dose: 250 mls/hr Documented by: Iopamidol (Iopamidol 755 Mg/Ml 100 Ml Bottle) 100 ml IVPUSH ONETIME ONE Stop: 07/27/21 14:37 Last Admin: 07/27/21 14:05 Dose: 100 ml Documented by: Levothyroxine Sodium (Levothyroxine 100 Mcg Tab) 100 mcg PO DAILY [facility] Ondansetron HCl (Ondansetron 4 Mg/2 Ml Sdv) 4 mg IVPUSH ONETIME ONE Stop: 07/27/21 12:21 Last Admin: 07/27/21 12:42 Dose: 4 mg Documented by: - Exam Quality Assessment: Supplemental Oxygen (6L with sats in the low 90s) General: Alert, Oriented, Cooperative, No Acute Distress HEENT: Mucous Membr. Moist/Denio Neck: Supple Lungs: Normal Respiratory Effort, Crackles (throughout the entire lung bilaterally) Cardiovascular: Regular Rate, Regular Rhythm GI/Abdominal Exam: Normal Bowel Sounds, Soft, Non-Tender Extremities: Non-Tender, No Pedal Edema Skin: Warm, Dry Neurological: No New Focal Deficit Psy/Mental Status: Alert, Normal Affect, Normal Mood - Patient Data Lab Results Last 24 hrs: Laboratory Results - last 24 hr 07/30/21 07/30/21 Range/Units 07:02 07:02 WBC 9.0 (4.0-10.0) x10^3/uL RBC 3.85 L (4.5-6.0) x10^6/uL Hgb 10.7 L (14.0-18.0) g/dL Hct 33.5 L (40.0-52.0) % MCV 87.0 (78.0-93.0) fL MCH 27.8 (26.0-32.0) pg MCHC 31.9 L (32.0-36.0) g/dL RDW Coeff of Jarrod 15.1 H (10.0-15.0) % Plt Count 217 (130-400) x10^3/uL Immature Gran % (Auto) 0.80 H (0.00-0.43) % Neut % (Auto) 84.2 H (50.0-80.0) % Lymph % (Auto) 7.7 L (25.0-50.0) % [place] % (Auto) 7.2 (2.0-11.0) % Eos % (Auto) 0.0 (0.0-4.0) % Baso % (Auto) 0.1 L (0.2-1.2) % Neut # (Auto) 7.6 (1.8-7.7) x10^3/uL Lymph # (Auto) 0.7 L (1.0-4.8) x10^3/uL [place] # (Auto) 0.7 (0.0-0.8) x10^3/uL Eos # (Auto) 0.0 (0.0-0.5) x10^3/uL Baso # (Auto) 0.0 (0.0-0.2) x10^3/uL Immature Gran # (Auto) 0.07 (0.00-0.07) x10^3/uL Sodium 142 (136-145) mmol/L Potassium 4.4 (3.5-5.1) mmol/L Chloride 106 (98-107) mmol/L Carbon Dioxide 32 (21-32) mmol/L Anion Gap 8.4 (5-15) mmol/L BUN 16 (7-18) mg/dL Creatinine 0.8 (0.70-1.30) mg/dL Est Cr Clr Drug Dosing 92.06 mL/min Estimated GFR (MDRD) > 60 Glucose 137 H (70-99) mg/dL Calcium 8.4 L (8.5-10.1) mg/dL Corrected Calcium 9.7 (8.5-10.1) mg/dL Total Bilirubin 0.3 (0.2-1.0) mg/dL AST 56 H (15-37) U/L ALT 47 (16-63) U/L Alkaline Phosphatase 73 (46-116) U/L Total Protein 5.6 L (6.4-8.2) g/dL Albumin 2.4 L (3.4-5.0) g/dL Globulin 3.2 Albumin/Globulin Ratio 0.75 Result Diagrams: 07/30/21 07:02 07/30/21 07:02 Matias Results Last 24 hrs: Microbiology 07/27/21 12:25 Aerobic Blood Culture - Preliminary Blood - Venous NO GROWTH AFTER 2 DAYS Anaerobic Blood Culture - Preliminary NO GROWTH AFTER 2 DAYS 07/27/21 12:34 Aerobic Blood Culture - Preliminary Blood - Venous - Lab Draw NO GROWTH AFTER 2 DAYS Anaerobic Blood Culture - Final Sepsis Event Note - Evaluation Sepsis Screening Result: No Definite Risk - Focused Exam Vital Signs: Vital Signs Temp Pulse Resp BP Pulse Ox Pulse Ox 07/30/21 11:01 97.5 F 47 L 20 104/57 L 95 07/30/21 10:00 97 07/30/21 08:38 90 L 07/30/21 06:37 91 L 07/30/21 06:05 50 L 16 101/57 L 94 L 07/30/21 02:34 89 L - Problem List & Annotations (1) COVID-19 SNOMED Code(s): 365234372 Code(s): U07.1 - COVID-19 Status: Acute Current Visit: Yes (2) Respiratory failure SNOMED Code(s): 160018372 Code(s): J96.90 - RESPIRATORY FAILURE, UNSP, UNSP W HYPOXIA OR HYPERCAPNIA Status: Acute Current Visit: Yes - Problem List Review Problem List Initiated/Reviewed/Updated: Yes - My Orders Last 24 Hours: My Active Orders 07/30/21 09:35 CXR [Chest 1V Frontal] [CR] Routine - Plan Plan:: Francisco J is a 65-year-old male who was admitted on 07/27/2021 for Covid pneumonia. Symptoms started on 07/22/2021. Acute hypoxic respiratory failure Covid pneumonia -Patient is status post monoclonal antibody therapy on 07/26/2021 -Received first dose of steroids in remdesivir in the ER on 07/27/2021 Plan: -Continue steroids and remdesivir -Continue to monitor oxygen and supplement as necessary -Zinc, vitamin D, vitamin C -Nursing communication for proning placed -IS encouraged -Repeat CXR today given worsening O2 need -Respiratory therapy consultation placed; will likely need home O2 eval at time of discharge -Repeat CMP, CBC daily. Incidental right renal mass - nonexistent - Seen on CTA chest, CTA abd/pelvis noting this is artifact Chronic: -Angiodysplasia/history of GI hemorrhage: Patient is now due for his next dose of lanreotide until 08/03/2021 -Obstructive sleep apnea: CPAP use at night -Hypokalemia: Continue home medication -Secondary hypothyroidism: Continue home medication -Chronic gout: Continue home medication -Morbid obesity Diet: Regular DVT: Lovenox subcu Code: Full Disposition: Anticipate patient to remain inpatient for 5 days for continued monitoring and treatment of the acute hypoxic respiratory failure and Covid pneumonia. Did recommend for him to stay inpatient for the period of time for the treatment with remdesivir for prevention of him having worsening of his symptoms. Repeat CXR today. RT for home O2 eval.
--- NOTE | 2021-07-30 13:08 | CR ---
[id number] RAD/RAD Chest PA or AP 1V EXAM: RAD Chest PA or AP 1V INDICATION: HYPOXIA,WORSENED. COMPARISON: July 28, 2021. DISCUSSION: Stable patchy pulmonary infiltrates overlying the lungs bilaterally. Overall no significant change when compared to prior. No pneumothorax or pleural effusion. IMPRESSION: Stable chest. Yobany Ernst DO 07/30/21 [id number] Thank you for allowing us to participate in the care of your patient.
[2021-07-30] MEDS: REMDESIVIR 100 MG in Sodium Chloride 0.9% 100 ML IV SCH (16:16)
[2021-07-31] MEDS: Ascorbic Acid 500 MG Tab PO SCH (08:28)
[2021-07-31] MEDS: Zinc Sulfate 220 MG Cap PO SCH (08:28)
[2021-07-31] MEDS: Potassium Chloride 20 MEQ Tab.ER PO SCH (08:29)
[2021-07-31] MEDS: dexAMETHasone 2 MG, dexAMETHasone 4 MG PO SCH ×2 (08:29)
[2021-07-31] MEDS: Levothyroxine 100 MCG Tab PO SCH (08:30)
[2021-07-31] MEDS: Multivitamins with Iron/Calcium/Folic Acid/Minerals Tab PO SCH (08:30)
[2021-07-31] MEDS: Allopurinol 300 MG Tab PO SCH (08:30)
[2021-07-31] MEDS: Cholecalciferol (Vitamin D3) 25 MCG Tab PO SCH (08:30)
[2021-07-31] MEDS: Enoxaparin 40 MG/0.4 ML Syringe SUBCUT SCH (08:31)
[2021-07-31] MEDS: REMDESIVIR 100 MG in Sodium Chloride 0.9% 100 ML IV SCH (11:01)
--- NOTE | 2021-07-31 12:17 | PCM.DCSUM1 ---
Discharge Summary - Hospital Course Free Text/Narrative:: Francisco J is a 65-year-old male with a past medical history of angiodysplasia with gastrointestinal hemorrhage, morbid obesity, secondary hypothyroidism, chronic gout, hypokalemia, sleep apnea on CPAP therapy, chronic iron deficiency anemia who was admitted on 07/27/21 for acute hypoxic respiratory failure secondary to Covid pneumonia. Patient states that symptoms started on 07/22/21 with some fatigue and body aches. On 07/25/2021, he did start to feel a bit worse and got some chills and actually went to [facility] to get tested for Covid. His Covid test came back positive. Due to his high risk status it was recommended for him to receive band therapy. He actually did receive this on 07/26/2021 and felt pretty good after returning home. Today while doing home oxygen monitoring he did note that his oxygen saturations dipped to 85%. Nubia dave, admitted to the hospital for treatment. Patient finished out 5 days of remdesivir therapy. He has also been on steroids while in the hospital. Oxygen saturations have waxed and waned throughout his hospital stay with needing up to 6 L to maintain SPO2 greater than 90%. Patient does have history of chronic hypoxia with dips into the upper 80s but has not been fully worked up outpatient. At this time patient is adamant about getting out of the hospital; we will plan to discharge him home with close follow-up. He has undergone home oxygen eval by respiratory therapy. We will plan to discharge him home on 4 to 5 L at rest. We will also continue the course of oral steroids upon discharge for 4 more days. I want him to follow-up in the clinic with me in 1 week's time. Should call/come back if any worsening of symptoms over that time. Do encourage him to be up and about. Do encourage incentive spirometry. - Discharge Data Discharge Date: 07/31/21 Discharge Disposition: Home, Self-Care 01 Condition: Fair - Referral to Home Health Primary Care Physician: July Foreman MD - Discharge Diagnosis/Problem(s) (1) COVID-19 SNOMED Code(s): 556086989 ICD Code: U07.1 - COVID-19 Status: Acute Current Visit: Yes (2) Respiratory failure SNOMED Code(s): 278666905 ICD Code: J96.90 - RESPIRATORY FAILURE, UNSP, UNSP W HYPOXIA OR HYPERCAPNIA Status: Acute Current Visit: Yes - Patient Summary/Data Consults: Consultations 07/27/21 17:01 Respiratory Care Assess and Treatment [CONS] Routine - Discharge Plan *PRESCRIPTION DRUG MONITORING PROGRAM REVIEWED*: Not Applicable *COPY OF PRESCRIPTION DRUG MONITORING REPORT IN PATIENT SHERMAN: Not Applicable Prescriptions/Med Rec: dexAMETHasone [Dexamethasone] 4 mg PO DAILY 4 Days #4 tablet Home Medications: Home Meds Acetaminophen [Tylenol Extra Strength] 1,000 mg PO Q4H PRN 07/27/21 [History] Allopurinol [Zyloprim] 300 mg PO DAILY 07/27/21 [History] Levothyroxine Sodium [Levothyroxine] 100 mcg PO DAILY 07/27/21 [History] Multivitamin with Minerals [Multiple Vitamin] 1 tab PO DAILY 07/27/21 [History] Potassium Chloride [Klor-Con M20] 20 meq PO BIDMEALS 07/27/21 [History] Sildenafil Citrate [Viagra] 100 mg PO DAILY PRN 07/27/21 [History] traMADol [Ultram] 50 mg PO BID PRN 07/27/21 [History] Ascorbic Acid [Vitamin C] 500 mg PO DAILY tablet 07/31/21 [Rx] Cholecalciferol (Vitamin D3) [Vitamin D3] 25 mcg PO DAILY tablet 07/31/21 [Rx] Zinc Sulfate [Zincate] 220 mg PO DAILY cap 07/31/21 [Rx] dexAMETHasone [Dexamethasone] 4 mg PO DAILY 4 Days #4 tablet 07/31/21 [Rx] Oxygen Therapy Mode: Nasal Cannula (4L at rest, 5L with sleep/ambulation) Oxygen Flow Rate (L/min): 4 Maintain SpO2% greater than: 88 Forms: ED Department Discharge Referrals: July Foreman MD [Primary Care Provider] - 08/07/21 2:00 pm (You have a follow up appt. with Dr. Ester Foreman on August 07, 2021 at 2pm---[facility]. Please wear a mask to your appt.) - Discharge Summary/Plan Comment DC Time >30 min.: No Total # of Minutes for Discharge Time: 25 Discharge Summary/Plan Comment: Decadron 4mg PO for 4 more days Incentive Spirometry every hour O2 per nasal canula at 4L at rest, ok to bump to 5L with activity/sleep. 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 clinic follow-up in 1 weeks time, call/come back sooner if symptoms worsening - Review of Systems General: Reports: Weakness HEENT: Reports: No Symptoms Pulmonary: Reports: No Symptoms Cardiovascular: Reports: No Symptoms Gastrointestinal: Reports: No Symptoms Genitourinary: Reports: No Symptoms Musculoskeletal: Reports: No Symptoms Skin: Reports: No Symptoms Neurological: Reports: No Symptoms Psychiatric: Reports: No Symptoms - Patient Data Vitals - Most Recent: Last Vital Signs Temp 97.8 F 07/31/21 10:00 Pulse 48 L 07/31/21 10:00 Resp 20 07/31/21 10:00 BP 94/65 07/31/21 10:00 Pulse Ox 92 L 07/31/21 10:00 Weight - Most Recent: 300 lb I&O - Last 24 hours: Intake & Output 07/30/21 07/31/21 07/31/21 22:59 06:59 14:59 Intake Total 220 120 Balance 220 120 CHERI Results - Last 24 hrs: Microbiology 07/27/21 12:34 Aerobic Blood Culture - Preliminary Blood - Venous - Lab Draw NO GROWTH AFTER 3 DAYS Anaerobic Blood Culture - Final 07/27/21 12:25 Aerobic Blood Culture - Preliminary Blood - Venous NO GROWTH AFTER 3 DAYS Anaerobic Blood Culture - Preliminary NO GROWTH AFTER 3 DAYS Med Orders - Current: Current Medications Acetaminophen (Acetaminophen 325 Mg Tab) 650 mg PO Q4H PRN PRN Reason: Pain (Mild 1-3)/fever Last Admin: 07/30/21 08:41 Dose: 650 mg Documented by: Allopurinol (Allopurinol 300 Mg Tab) 300 mg PO DAILY [facility] 234 BEDS AT [facility] Last Admin: 07/31/21 08:30 Dose: 300 mg Documented by: Ascorbic Acid (Ascorbic Acid 500 Mg Tab) 500 mg PO DAILY [facility] 234 BEDS AT [facility] Last Admin: 07/31/21 08:28 Dose: 500 mg Documented by: Cholecalciferol (Cholecalciferol (Vitamin D3) 25 Mcg Tab) 25 mcg PO DAILY [facility]S [facility]CLUDE 234 BEDS AT [facility] Last Admin: 07/31/21 08:30 Dose: 25 mcg Documented by: Dexamethasone 2 mg/ (Dexamethasone 4 mg) 6 mg PO DAILY [facility]S [facility]CLUDE 234 BEDS AT [facility] Last Admin: 07/31/21 08:29 Dose: 6 mg Documented by: Enoxaparin Sodium (Enoxaparin 40 Mg/0.4 Ml Syringe) 40 mg SUBCUT DAILY [facility]S [facility]CLUDE 234 BEDS AT [facility] Last Admin: 07/31/21 08:31 Dose: 40 mg Documented by: Remdesivir 100 mg/ Sodium (Chloride) 100 mls @ 100 mls/hr IV Q24H COUNTS [facility]CLUDE 234 BEDS AT [facility] Stop: 07/31/21 16:59 Last Admin: 07/31/21 11:01 Dose: 100 mls/hr Documented by: Levothyroxine Sodium (Levothyroxine 100 Mcg Tab) 100 mcg PO ACBREAKFAST [facility]S [facility]CLUDE 234 BEDS AT [facility] Last Admin: 07/31/21 08:30 Dose: 100 mcg Documented by: Multivitamins/Minerals (Multivitamins With Iron/Calcium/Folic Acid/Minerals Tab) 1 tab PO DAILY [facility]S [facility]CLUDE 234 BEDS AT [facility] Last Admin: 07/31/21 08:30 Dose: 1 tab Documented by: Ondansetron HCl (Ondansetron 4 Mg Tab.Dis) 4 mg PO Q4H PRN PRN Reason: nausea, able to take PO Last Admin: 07/30/21 08:42 Dose: 4 mg Documented by: Potassium Chloride (Potassium Chloride 20 Meq Tab.Er) 20 meq PO BIDMEALS COUNTS INCLUDE 234 BEDS AT [facility] Last Admin: 07/31/21 08:29 Dose: 20 meq Documented by: Tramadol HCl (Tramadol 50 Mg Tab) 50 mg PO BID PRN PRN Reason: severe pain Zinc Sulfate (Zinc Sulfate 220 Mg Cap) 220 mg PO DAILY [facility]S INCLUDE 234 BEDS AT [facility] Last Admin: 07/31/21 08:28 Dose: 220 mg Documented by: Discontinued Medications Dexamethasone 2 mg/ (Dexamethasone 4 mg) 6 mg PO ONETIME ONE Stop: 07/27/21 13:17 Last Admin: 07/27/21 13:28 Dose: 6 mg Documented by: Sodium Chloride (Normal Saline) 1,000 mls @ 999 mls/hr IV ASDIRECTED COUNTS INCLUDE 234 BEDS AT THE [facility] Last Admin: 07/27/21 12:42 Dose: 999 mls/hr Documented by: Remdesivir 200 mg/ Sodium (Chloride) 250 mls @ 250 mls/hr IV ONETIME ONE Stop: 07/27/21 13:55 Last Admin: 07/27/21 13:29 Dose: 250 mls/hr Documented by: Iopamidol (Iopamidol 755 Mg/Ml 100 Ml Bottle) 100 ml IVPUSH ONETIME ONE Stop: 07/27/21 14:37 Last Admin: 07/27/21 14:05 Dose: 100 ml Documented by: Levothyroxine Sodium (Levothyroxine 100 Mcg Tab) 100 mcg PO DAILY [facility] Ondansetron HCl (Ondansetron 4 Mg/2 Ml Sdv) 4 mg IVPUSH ONETIME ONE Stop: 07/27/21 12:21 Last Admin: 07/27/21 12:42 Dose: 4 mg Documented by: - Exam Quality Assessment: Reports: Supplemental Oxygen (4.5L with sats in the mid-90s) General: Reports: Alert, Oriented, Cooperative, No Acute Distress Neck: Reports: Supple Lungs: Reports: Normal Respiratory Effort, Crackles (Bilateral lower lobes (upper lobes cleared from yesterday's exam)) Cardiovascular: Reports: Regular Rate, Regular Rhythm GI/Abdominal Exam: Normal Bowel Sounds, Soft, Non-Tender Extremities: Non-Tender, No Pedal Edema Skin: Reports: Warm Psy/Mental Status: Reports: Alert, Normal Affect, Normal Mood
== END 2021-07-31 14:05 | disposition home or self-care (01) | DRG 177 ==
LOC: VM.ED 12:12 → VM.MS 13:06
PROVIDERS: ADMIT Physician Assistant; ATTEND Family Medicine
PROC: XW033E5 Introduction of Remdesivir Anti-infective into Peripheral Vein, Percutaneous Approach, New Technology Group 5 (ICD-10-PCS; principal; 2021-07-27)
PROC: 3E0DX3Z Introduction of Anti-inflammatory into Mouth and Pharynx, External Approach (ICD-10-PCS; 2021-07-27)
DX: U07.1 COVID-19 (principal); J96.91 Respiratory failure, unspecified with hypoxia; J12.82 Pneumonia due to coronavirus disease 2019; J96.01 Acute respiratory failure with hypoxia; I10 Essential (primary) hypertension; E03.9 Hypothyroidism, unspecified; N28.89 Other specified disorders of kidney and ureter; G47.33 Obstructive sleep apnea (adult) (pediatric); E87.6 Hypokalemia; M1A.9XX0 Chronic gout, unspecified, without tophus (tophi); E66.01 Morbid (severe) obesity due to excess calories; Z79.890 Hormone replacement therapy; Z79.899 Other long term (current) drug therapy
CPT/HCPCS: 36415; 36600; 71045; 71275; 74178; 80053; 81003; 82803; 83605; 83880; 84484; 85025; 85027; 85379; 86140; 87040; 93005; 93010; 94760; 96374; 99284; 99285-25; A9270-GY; J1650; J2405; J7030; J7050; J8540; Q9967

== ENCOUNTER 2023-06-26 20:58 | Emergency (ER) | payer MEDICARE, OTHER | END 2023-06-26 22:25 | disposition home or self-care (01) | LOC: VM.ED 20:58 | DX: M62.81 Muscle weakness (generalized) (principal); I10 Essential (primary) hypertension; E03.9 Hypothyroidism, unspecified; E66.9 Obesity, unspecified; Z79.899 Other long term (current) drug therapy; Z86.16 Personal history of COVID-19 | CPT/HCPCS: 99283; 99285 ==

== ENCOUNTER 2025-03-29 17:46 | Emergency (ER) | payer MEDICARE, OTHER ==
[2025-03-29] MEDS ORDERED: Furosemide 40 MG/4 ML VIAL IVPUSH ONE (17:59)
[2025-03-29] MEDS: Furosemide 20 MG/2 ML VIAL IV ONE (21:35)
== END 2025-03-29 21:45 | disposition home or self-care (01) ==
LOC: VM.ED 17:46
DX: D50.0 Iron deficiency anemia secondary to blood loss (chronic) (principal); K92.2 Gastrointestinal hemorrhage, unspecified; I11.0 Hypertensive heart disease with heart failure; I50.9 Heart failure, unspecified; I48.91 Unspecified atrial fibrillation; E03.9 Hypothyroidism, unspecified; F17.200 Nicotine dependence, unspecified, uncomplicated; Z86.16 Personal history of COVID-19; Z90.49 Acquired absence of other specified parts of digestive tract; Z79.01 Long term (current) use of anticoagulants; Z79.890 Hormone replacement therapy; Z79.899 Other long term (current) drug therapy
CPT/HCPCS: 36415; 36430; 86850; 86900; 86901; 86920; 86922; 96374; 99284; 99284-25; J1938; P9016